=== PATIENT | male | born 1940 | race Caucasian/White ===

== ENCOUNTER 2017-03-27 00:11 | Emergency (ER) ==
[2017-03-27 00:30] VITALS: BP 112/63; TEMP 96.9; BMI 25.7
[2017-03-27] MEDS ORDERED: ZOFRAN 4 MG/2 ML IVP STA (00:31)
[2017-03-27] MEDS ORDERED: SODIUM CHLORIDE 1,000 ML IV STA (00:31)
[2017-03-27] MEDS ORDERED: MORPHINE 4 MG/ML SYRINGE IVP STA (00:34)
--- NOTE | 2017-03-27 00:35 | ED.PDOC ---
General ED Provider: Dr. BASSAM SINGH Chief Complaint: Abdominal Pain Stated Complaint: Patient is a 77 year old who comes to the ER with compaints of Constant aching pain across abdomen. States that it started after eating a package of peanut butter crackers at 2015.Also complains of Nausea/vomiting, diarrhea. Rates pain 10/. Says has aortic aneurism and had a stent 3-4 yrs ago. Time Seen by Physician: 00:32 Mode of Arrival: Wheelchair Information Source: Patient Exam Limitations: No limitations Primary Care Provider: MAIA BOOTH Nursing and Triage Documentation Reviewed and Agree: Yes GI Complaint Exam - Abdominal Pain Complaint/Exam Onset: Sudden Duration: 3 hours Symptoms Are: Still present Timing: Constant Initial Severity: Moderate Current Severity: Severe Location of Pain: Diffuse Character: Reports: Cramping, Colicky Aggravating: Reports: Food Alleviating: Reports: Vomiting Associated Signs and Symptoms: Reports: Back pain, Nausea, Vomiting. Denies: Diaphoresis, Fever, Cough, Chest pain, Dizziness, Constipation, Blood in stool, Dysuria, Urinary frequency, Decreased urine output, Decreased appetite, Discharge, Diarrhea, Decreased activity AAA Risk Factors: Reports: Prior AAA Cardiac Risk Factors: Reports: None Testicular Torsion Risk Factors: Reports: None Surgical Obstruction Risk Factors: Reports: None Related Surgical History: Reports: AAA Repair Abdominal Findings: Present: Pulsatile mass Differential Diagnoses: Bowel Obstruction, Gastroenteritis, AAA Review of Systems - Review Of Systems Constitutional: Reports: No symptoms Eyes: Reports: No symptoms Ears, Nose, Mouth, Throat: Reports: No symptoms Respiratory: Reports: No symptoms Cardiac: Reports: No symptoms GI: Reports: Abdominal pain, Diarrhea, Nausea, Vomiting : Reports: No symptoms Musculoskeletal: Reports: No symptoms Skin: Reports: No symptoms Neurological: Reports: No symptoms Endocrine: Reports: No symptoms Hematologic/Lymphatic: Reports: No symptoms All Other Systems: Reviewed and Negative Past Medical History - Past Medical History Previously Healthy: Yes Endocrine: Reports: None Cardiovascular: Reports: None Respiratory: Reports: None Hematological: Reports: None Gastrointestinal: Reports: None Genitourinary: Reports: None Neuro/Psych: Reports: None Musculoskeletal: Reports: None Cancer: Reports: None - Surgical History General Surgical History: Reports: Other (stent abdominal Aorta ) - Family History Family History: Reports: None - Social History Smoking Status: Current every day smoker Hx Substance Use: No Alcohol Screening: None - Immunizations Tetanus Shot up to Date: No Physical Exam - Physical Exam Appearance: Ill-appearing Ill-appearing: Severe Pain Distress: Severe Neck: Supple Respiratory: Airway patent, Breath sounds clear, Breath sounds equal, Respirations nonlabored Cardiovascular: RRR, Pulses normal, No rub, No murmur GI/: Soft, Tender Musculoskeletal: Normal strength, ROM intact, No edema, No calf tenderness Skin: Warm Neurological: Sensation intact, Motor intact, Cranial nerves intact, Alert, Oriented Psychiatric: Anxious Interpretation - Radiology Interpretation Radiology Interpretation By: Radiologist Radiology Results: Positive (Large infrarenal AAA with leak into) Exam Interpreted: CT Scan (Abdomen and Pelvis) Re-Evaluation - Re-Evaluation Time of Re-Evaluation: 02:01 Status: Unchanged Vital Signs Stable: Yes Pain Level: 10 Appearance: NAD Lungs: Clear Physician Notification - Case Discussed Physician Notified: Dr Blackwood Time of Notification: 01:50 (accepted ) Critical Care Note - Critical Care Note Total Time (mins): 45 Course - Course Hematology/Chemistry: 03/27/17 00:48 03/27/17 00:48 Orders, Labs, Meds: Lab Review 03/27/17 00:48 WBC 25.45 H RBC 3.46 L Hgb 10.5 L Hct 31.3 L MCV 90.5 MCH 30.3 MCHC 33.5 RDW Coeff of [place] 14.4 Plt Count 226 Immature Gran % (Auto) 0.6 Neut % (Auto) 82.8 Lymph % (Auto) 11.4 [place] % (Auto) 4.0 Eos % (Auto) 0.8 Baso % (Auto) 0.4 Immature Gran # (Auto) 0.2 Neut # 21.1 H Lymph # 2.9 [place] # 1.0 Eos # 0.2 Baso # 0.1 Sodium 142 Potassium 3.0 L Chloride 102 Carbon Dioxide 24 Anion Gap 19.0 BUN 26 H Creatinine 1.58 H Estimated GFR (MDRD) 43.00 BUN/Creatinine Ratio 16.45 Glucose 274 H Calcium 9.0 Total Bilirubin 0.41 AST 18 ALT 14 Alkaline Phosphatase 83 Total Protein 7.1 Albumin 3.6 Globulin 3.5 Albumin/Globulin Ratio 1.03 Amylase 55 Lipase 25 Orders Category Date Time Status ED IV/MEDIPORT/POWERPORT .ONCE EMERGENCY 03/27/17 00:31 Active AMYLASE Stat LAB 03/27/17 00:48 Completed CBC W/ AUTO DIFF Stat LAB 03/27/17 00:48 Completed COMPREHENSIVE METABOLIC PANEL Stat LAB 03/27/17 00:48 Completed LIPASE Stat LAB 03/27/17 00:48 Completed 0.9 % Sodium Chloride [Saline Flush] MEDS 03/27/17 00:31 Discontinued 1 syr IVF PRN PRN Dicyclomine Inj [Bentyl] MEDS 03/27/17 00:46 Discontinued 20 mg IM ONCE STA Hydromorphone HCl [Dilaudid 1 mg/ml Syringe] MEDS 03/27/17 01:37 Discontinued 1 mg IVP ONCE STA Hydromorphone HCl [Dilaudid 1 mg/ml Syringe] MEDS 03/27/17 02:01 Discontinued 1 mg IVP ONCE STA Morphine Sulfate [Morphine 4 mg/ml Syringe] MEDS 03/27/17 00:34 Discontinued 4 mg IVP ONCE STA Ondansetron HCl/Pf [Zofran 4 mg/2 ml] MEDS 03/27/17 00:31 Discontinued 4 mg IVP ONCE STA Sodium Chloride 0.9% [Sodium Chloride] 1,000 ml MEDS 03/27/17 00:[address] ABDOMEN/PELVIS WO CONTRAST Stat RADS 03/27/17 00:31 Completed Medications Discontinued Medications Generic Name Dose Route Start Last Admin Trade Name Freq PRN Reason Stop Dose Admin Dicyclomine HCl 20 mg 03/27/17 00:46 03/27/17 01:16 Bentyl IM 03/27/17 00:47 20 mg ONCE STA Administration Hydromorphone HCl 1 mg 03/27/17 01:37 03/27/17 01:57 Dilaudid 1 Mg/Ml Syringe IVP 03/27/17 01:38 1 mg ONCE STA Administration Hydromorphone HCl 1 mg 03/27/17 02:01 03/27/17 02:07 Dilaudid 1 Mg/Ml Syringe IVP 03/27/17 02:02 1 mg ONCE STA Administration Sodium Chloride 1,000 mls @ 1,000 mls/hr 03/27/17 00:31 03/27/17 00:58 Sodium Chloride IV 03/27/17 01:30 1,000 mls/hr BOLUS STA Administration Morphine Sulfate 4 mg 03/27/17 00:34 03/27/17 00:56 Morphine 4 Mg/Ml Syringe IVP 03/27/17 00:35 4 mg ONCE STA Administration Ondansetron HCl 4 mg 03/27/17 00:31 03/27/17 00:58 Zofran 4 Mg/2 Ml IVP 03/27/17 00:32 4 mg ONCE STA Administration Sodium Chloride 1 syr 03/27/17 00:31 03/27/17 00:58 Saline Flush IVF 1 syr PRN PRN Administration To flush IV Vital Signs: Temp Pulse Resp BP Pulse Ox 03/27/17 00:12 96.9 F L 68 20 112/63 96 Departure - Departure Time of Disposition: 02:06 Disposition: TSF SHORT-TRM HOSP Discharge Problem: Abdominal pain, Leaking abdominal aortic aneurysm (AAA) Condition: Critical Pt referred to PMD for follow-up: Yes Allergies/Adverse Reactions: Allergies No Known Allergies Allergy (Unverified 03/27/17 00:22) Home Medications: Ambulatory Orders Aspirin [Aspirin EC] 81 mg PO DAILYWM 03/27/17 Multivitamin [Multi-Vitamin Daily] 1 each PO DAILY 03/27/17 Pt. Stabilized Within Hospital's Capabilities/Transferred To: [facility] Transfer Form Completed: Yes Disposition Discussed With: Patient, Family
[2017-03-27] MEDS ORDERED: BENTYL IM STA (00:46)
[2017-03-27 00:50] LABS: BASOPHILS # (AUTO) 0.1 K/uL (0-0.2); BASOPHILS % (AUTO) 0.4 % (0.0-3.0); EOSINOPHILS # (AUTO) 0.2 K/ul (0.0-0.7); EOSINOPHILS % (AUTO) 0.8 % (0.0-7.0); HEMATOCRIT 31.3 % (42.0-52.0); HEMOGLOBIN 10.5 g/dl (14.0-18.0); IMMATURE GRANULOCYTE % (AUTO) 0.6 % (0.0-5.0); LYMPHOCYTES # (AUTO) 2.9 K/uL (0.60-3.4); LYMPHOCYTES % (AUTO) 11.4 (10.0-50.0); MEAN CORPUSCULAR HEMOGLOBIN 30.3 pg (27.0-31.0); MEAN CORPUSCULAR HGB CONC 33.5 (31.8-35.4); MEAN CORPUSCULAR VOLUME 90.5 fl (80.0-94.0); NEUTROPHILS # (AUTO) 21.1 K/ul (2.0-6.9); NEUTROPHILS % (AUTO) 82.8; PLATELET COUNT 226 10^3/uL (140-440); RED BLOOD COUNT 3.46 10^6/ul (4.70-6.10); WHITE BLOOD COUNT 25.45 K/ul (4.2-10.2)
[2017-03-27 01:07] LABS: ALBUMIN 3.6 g/dL (3.4-5.0); ALBUMIN/GLOBULIN RATIO 1.03; BILIRUBIN,TOTAL 0.41 mg/dL (0.00-1.20); BUN/CREATININE RATIO 16.45; CREATININE 1.58 mg/dL (0.60-1.10); TOTAL PROTEIN 7.1 g/dL (5.8-8.1)
--- NOTE | 2017-03-27 01:31 | CT ---
EXAM: CT scan abdomen pelvis without contrast HISTORY: Abdominal pain COMPARISON: None. FINDINGS: Contiguous axial images obtained through the abdomen pelvis without contrast utilizing 3- mm collimation. Sagittal and coronal reconstructions were imaged and reviewed.. Bronchiectatic lay nges noted medially at the right lung base. There is moderate sized hiatal hernia. The heart is no rmal in size with small pericardial effusion measuring 8 mm. The gallbladder is fluid filled without cholelithiasis. High density fluid is seen surrounding the liver extending into the dependent pelv is compatible with hemorrhage. There is a large infrarenal abdominal aortic aneurysm measuring 11.4 cm greatest transverse diameter which contains an endovascular stent graft. There is a mantle of re troperitoneal hemorrhage surrounding the anterolateral margin of the aneurysm which extends from the infrarenal level into the pelvis measuring 4.6 cm in AP dimension. superiorly.. There is marked pr ostatic enlargement. There is concentric bladder wall thickening. Large bilateral renal cysts are noted. There is mild right-sided hydronephrosis and hydroureter.. There is a normal appendix.. Mo derate degenerative changes are seen within the lower lumbar spine and bilateral hips. IMPRESSION: Large infrarenal abdominal aortic aneurysm which contains an endovascular stent graft and demonstrat es evidence of leaking with extensive retroperitoneal hemorrhage about the anterolateral margin of t he aneurysm extending into the pelvis. . Hemorrhage is also seen surrounding the liver and within th e dependent pelvis. Marked prostatic enlargement. Right-sided hydronephrosis without definite obstructing mechanism. There is extensive concentric bl adder wall thickening. Diverticulosis without diverticulitis. Normal appendix. Hiatal hernia. Numerous bilateral renal cyst. Results were conveyed via telephone to the emergency room physician 1:23 a.m. 03/27/2017
[2017-03-27] MEDS ORDERED: DILAUDID 1 MG/ML SYRINGE IVP STA ×2 (01:37→02:01)
== END 2017-03-27 02:15 | disposition short-term general hospital (02) ==
LOC: ED 00:11
DX: I71.3 Abdominal aortic aneurysm, ruptured (principal); F17.210 Nicotine dependence, cigarettes, uncomplicated
CPT/HCPCS: 36415; 80053; 82150; 83690; 85025; 96361; 96372; 96375; 96376; 99285